=== PATIENT | male | born 1950 | race American Indian/Alaskan Native ===

== ENCOUNTER 2017-01-11 09:49 | Outpatient (CLI) | payer MEDICARE ==
--- NOTE | 2017-01-11 10:44 | Cat Scan Report ---
CT ABDOMEN AND PELVIS WITHOUT CONTRAST INDICATION: Microscopic hematuria. COMPARISON: None similar at this institution. FINDINGS: Noncontrast abdomen and pelvis CT performed. LUNG BASES: Nonspecific distal esophageal wall prominence/thickening, not excluded for gastroesophageal reflux and/or hiatal hernia, amongst others. ABDOMEN: Please note that sensitivity to detect small visceral lesions is limited due to the absence of intravenous or oral contrast. Motion artifact also partly degrades exam. Few hepatic hypodensities noted superiorly, the largest 2.7 cm simple cyst on axial image 18, series 2 while some may be subcentimeter/indeterminate. No radiopaque gallstones or renal calculi. Spleen, pancreas, adrenals, nonaneurysmal abdominal aorta with few atherosclerotic calcifications and IVC grossly within normal limits. No ascites or size significant adenopathy. Nonopacified GI tract evaluation limited, though grossly nonobstructive. Normal appendix. Mild colonic diverticulosis throughout, most along the descending colon. Mild colonic stool as well. Small fat containing umbilical hernia with a transverse neck of 1.2 cm. PELVIS: Approximately 5 cm AP x 6.2 cm transverse enlarged prostate creates an impression at the bladder base and may be correlated for clinically and with PSA. Urinary bladder suboptimally distended and assessed. Left hemipelvic phlebolith. Rectosigmoid stool. No free fluid or definite significant adenopathy. Slight, age-appropriate bony degenerative changes. CONCLUSION: 1. Enlarged prostate; BPH versus neoplasm, as described. No radiopaque calculi noted. Please correlate. 2. Various other incidental findings, as above. Thank you for the opportunity to participate in this patient's care.
== END 2017-01-11 09:50 | disposition home or self-care (01) ==
LOC: CT 09:49
PROVIDERS: ATTEND Urology
DX: N40.0 Benign prostatic hyperplasia without lower urinary tract symptoms (principal); K57.30 Diverticulosis of large intestine without perforation or abscess without bleeding; K42.9 Umbilical hernia without obstruction or gangrene; I70.0 Atherosclerosis of aorta; I87.8 Other specified disorders of veins; N32.89 Other specified disorders of bladder; K76.89 Other specified diseases of liver
CPT/HCPCS: 74176